=== PATIENT | male | born 1950 | race African-American/Black ===

== ENCOUNTER 2018-08-30 08:19 | Emergency (ER) | payer OTHER ==
[~2018-08-30] VITALS: Ht 180.3 cm; Wt 49.9 kg
== END 2018-08-30 17:44 | disposition home or self-care (01) ==
LOC: ER 08:19
DX: E11.649 Type 2 diabetes mellitus with hypoglycemia without coma (principal); E86.0 Dehydration

== ENCOUNTER 2022-11-07 09:26 | Outpatient (CLI) | payer OTHER | END 2022-11-07 09:30 | disposition home or self-care (01) | LOC: RAD 09:26 | PROVIDERS: ATTEND General Practice | DX: J44.0 Chronic obstructive pulmonary disease with (acute) lower respiratory infection (principal) ==

== ENCOUNTER 2023-11-21 10:26 | Emergency (ER) | payer OTHER ==
[~2023-11-21] VITALS: Ht 180.3 cm; Wt 56.7 kg
[2023-11-21] MEDS ORDERED: GLIPIZIDE10 MG PO (10:35)
[2023-11-21] MEDS ORDERED: JANUMET 50-1,01 EACH PO (10:35)
[2023-11-21] MEDS ORDERED: LOSARTAN POTAS100 MG PO (10:36)
[2023-11-21] MEDS ORDERED: SIMVASTATIN5 MG PO (10:36)
[2023-11-21 11:07] LABS: HEMATOCRIT 36.8 % (39.0-48.0); MEAN CELL VOLUME 92.5 fL (80.0-100.00); MEAN CORPUSCULAR HEMOGLOBIN 32.7 pg (27.00-32.0); MEAN CORPUSCULAR HGB CONC 35.4 g/dl (32.0-36.0); PLATELET COUNT 349 K/uL (150-450); RED BLOOD COUNT 3.98 M/uL (4.00-6.00)
[2023-11-21 11:37] LABS: INR 1.04; PARTIAL THROMBOPLASTIN TIME 29.1 SECONDS (22.0-34.0); PROTHROMBIN TIME 10.9 SECONDS (9.0-11.5)
[2023-11-21 11:46] LABS: ALBUMIN 3.7 gm/dL (3.4-5.0); BILIRUBIN TOTAL 0.54 mg/dL (0.3-1.2); CALCIUM 9.5 mg/dL (8.5-10.1); CREATININE SERUM 0.7 mg/dL (0.70-1.30); GFR 112.83; GLOBULINA 3.3 G/DL (2.4-3.5); POTASSIUM 4.53 mEq/L (3.5-5.1)
[2023-11-21 13:33] LABS: URINE APPEARANCE Clear; URINE BILIRRUBIN Negative (NEGATIVE); URINE BLOOD Trace; URINE COLOR Yellow; URINE KETONE Trace (NEGATIVE); URINE LEUKOCYTE Small; URINE NITRATE Negative; URINE PROTEIN 30 (NEGATIVE)
[2023-11-21 13:38] LABS: URINE BACTERIA 88.1 uL (0.0-1933); URINE EPITHELIAL CELLS 2.3 uL (0.0-38.8); URINE RBC 75.1 uL (0.0-20.8); URINE WBC 11.8 uL (0.0-23.2)
[2023-11-21 13:39] LABS: URINE GLUCOSE 100 MG/DL (NEGATIVE)
[2023-11-21] MEDS ORDERED: METHYLPREDNISOLONE SOD SUCC 40 MG VIAL IM ONE (14:00)
[2023-11-21] MEDS ORDERED: METHYLPREDNISOLONE SOD SUCC 40 MG VIAL ONE (14:06)
== END 2023-11-21 14:25 | disposition home or self-care (01) ==
LOC: ER 10:26
PROVIDERS: General Practice
DX: R20.0 Anesthesia of skin (principal); R53.1 Weakness; E78.00 Pure hypercholesterolemia, unspecified; I10 Essential (primary) hypertension; E11.9 Type 2 diabetes mellitus without complications; Z79.84 Long term (current) use of oral hypoglycemic drugs; F17.210 Nicotine dependence, cigarettes, uncomplicated
CPT/HCPCS: 36415; 72128; 72131; 96372; 99284; J3490

== ENCOUNTER 2024-03-22 10:35 | Outpatient (CLI) | payer OTHER ==
[~2024-03-22 10:35] MED LIST: GLIPIZIDE10 MG PO; JANUMET 50-1,01 EACH PO; LOSARTAN POTAS100 MG PO; SIMVASTATIN5 MG PO
== END 2024-03-22 10:40 | disposition home or self-care (01) ==
LOC: MRI 10:35
PROVIDERS: ATTEND General Practice
DX: I69.398 Other sequelae of cerebral infarction (principal); M54.50 Low back pain, unspecified
CPT/HCPCS: 70551; 72148